=== PATIENT | male | born 1945 | race Caucasian/White ===

== ENCOUNTER → 2023-10-07 06:41 | Outpatient (REF) | payer MEDICARE, OTHER, SELFPAY | LOC: MRI 06:41 | PROVIDERS: ATTENDING PHYSICIAN Physical Medicine & Rehabilitation; FAMILY PHYSICIAN Internal Medicine | DX: M54.6 Pain in thoracic spine (principal); M54.16 Radiculopathy, lumbar region | CPT/HCPCS: 72146; 72148 ==

== ENCOUNTER 2023-11-26 18:06 | Emergency (ER) | payer MEDICARE, OTHER, SELFPAY ==
[2023-11-26 18:16] VITALS: BP 121/66
--- NOTE | 2023-11-26 18:59 | ED.GENMED ---
History of Present Illness
General
Chief Complaint: Facial Problem
Source: patient
Time Seen by Provider: 11/26/23 18:49
History of Present Illness
History of Present Illness:
77yoM with a history of coronary artery disease on a baby aspirin presenting with his neighbors for evaluation of facial lacerations. Patient was trimming a tree about 2 hours ago. He tripped over a root and fell face first onto the ground. He
believes he struck a tree branch or his chain saw on the way down. He has presenting with multiple facial lacerations. He denies any loss of consciousness. He denies any headache, visual changes, neck pain, dizziness, vomiting. Unknown last Tdap.
Past History
Past History
ED Past Medical History: Other (Chronic back pain from herniated disc and he is in pain management)
ED Past Surgical History: Cardiac (stent 02/2011 Dr. Oliveira.)
Social History
Tobacco: Non-smoker
Alcohol: Occasional
Personal:
Employment: Employed ([employer])
Family History
Family History: Negative Diabetes, Hypertension or CAD
Phy Exam
General Physical Exam
General Presentation: well appearing and no apparent distress
General age: appears stated age
General Skin: warm and dry
General Habitus: normal
General Mental: alert
ENT Exam
ENT Exam: other (Multiple lacerations noted to face. There is a gaping laceration to the forehead with central avulsed area. Minimal venous oozing noted. There is also a 1.5cm laceration noted under R eye with active bleeding. )
Eye Exam
Eye Exam: PERRL and EOMI
Neurological Exam
Neurological Exam: alert, no motor deficits and other (Ambulating independently)
[place] Coma Scale
Eye Opening: Spontaneous
Verbal Response: Oriented
Motor Response: Obeys Commands
GCS Total Score: 15
Skin Exam
Skin Exam: normal color and warm/dry
Psychiatric Exam
Psychiatric Exam: normal mood/affect
Course
Orders/Labs/Results
Orders:
Orders
11/26/23 18:59
Lidocaine/Epinephrine/Tetracai [Let Topical Anesthetic Gel] 3 ml TOPICAL NOW STA
11/26/23 19:01
Tetanus/Diphth/Acelpertussis [Adacel] 0.5 ml IM .ONCE ONE
Vital Signs
Initial and Last Documented VS:
Initial Vital Signs
Temp Pulse Resp BP Pulse Ox
97.8 F 67 19 121/66 100
11/26/23 18:16 11/26/23 18:16 11/26/23 18:16 11/26/23 18:16 11/26/23 18:16
Last Documented Vital Signs
Temp Pulse Resp BP Pulse Ox
97.8 F 70 18 134/80 100
11/26/23 18:16 11/26/23 20:52 11/26/23 20:52 11/26/23 20:52 11/26/23 18:16
Procedures
Laceration Closure
Middle Forehead:
Status of Wound: clean
Size of Wound in cm: 3
Description of Wound Edges: ragged
Preparation: cleaned with saline
Anesthesia: 1% Lidocaine with epi and Topical-LET
Revision/Debridement: routine- no revision
Wound exploration: explored to base- no FB
Type of Closure: single layer closure
Skin Closure Material: 5-0 nylon and 5-0 chromic gut
Number of sutures: 5
Additional information:
3 simple interrupted nylon sutures placed to inferior laceration. Superior aspect of the laceration with an area of avulsed skin that is unable to be approximated. Two chromic gut sutures placed to close dermal layer.
Right Cheek:
Status of Wound: clean
Size of Wound in cm: 1.5
Description of Wound Edges: sharp
Preparation: cleaned with saline
Anesthesia: 1% Lidocaine with epi and Topical-LET
Revision/Debridement: minor revision
Wound exploration: explored to base- no FB
Type of Closure: single layer closure
Skin Closure Material: 6-0 nylon
Number of sutures: 3
MDM/Problems Addressed
Differential Diagnosis Includes:
77yoM here with multiple facial lacerations after falling on a tree branch/chain saw. No LOC. On a baby aspirin daily. No headaches, dizziness, vomiting. VSS. He is awake, alert, with a GCS of 15. There are multiple lacerations on exam with a gaping
laceration to the forehead as well as a laceration inferior to the R eye that require repair.
Offered imaging which patient declines as he has no headache. Wounds were irrigated and repaired as above. The forehead laceration had a superior area of avulsion that was unable to be completely closed. Tdap updated. Home wound care discussed.
Patient advised to have sutures removed in 5 days. ED return precautions discussed. He expressed understanding and is agreeable to plan. He was discharged in stable condition.
*Critical Care Note
Total Time (30-74mins, 75-104mins- exclusive of procedures): Not Applicable
ED Attending Note
-
Portions of this chart may have been created with voice recognition software.� Occasional wrong word or��sound alike� substitutions may have occurred due to the inherent limitations of voice recognition software.
Discharge Plan
Departure
Patient Disposition: Home (Routine Discharge)
Date of Disposition: 11/26/23
Time of Disposition: 20:38
Patient with high blood pressure during this ER visit?: No
Discharge Problem:
Laceration of face, multiple sites
Instructions: Laceration Repair With Stitches (DC)
Prescriptions:
No Action
quetiapine 25 MG tablet
50 mg PO QPM
atorvastatin 10 MG tablet
20 mg PO QPM
metoprolol tartrate 25 MG tablet
25 mg PO QPM Qty: 1 0RF
Rx Instructions:
Hold if systolic blood pressure <130
tamsulosin 0.4 MG capsule
0.8 mg PO HS Qty: 60 0RF
aspirin 81 MG tablet,chewable
81 mg PO DAILY Qty: 30 0RF
Referrals:
Ray Khan, [Family Provider] -
Activity Restrictions/Additional Instructions:
Keep wound clean and dry. Do not get wet for the first 24 hours. Apply bacitracin twice a day for the first 3 days.
Please follow-up with your family doctor or return to the ED for suture removal in 5 days. Return to the ER sooner with any signs of infection, severe headache, confusion.
Interventions
Interventions:
*Risk Screen - Suicide Last Done: 11/26/23 18:18
*General Assessment Last Done: 11/26/23 18:19
*Neglect/Abuse Screening Last Done: 11/26/23 18:18
*Nursing Disposition Last Done: 11/26/23 20:52
ED- Neurological Assessment Last Done: 11/26/23 19:19
ED-Skin Assessment Last Done: 11/26/23 19:19
Discharge Date and Time
Discharge Date/Time: 11/26/23 20:52
Print Language: THAI
[2023-11-26] MEDS: LET TOPICAL ANESTHETIC GEL 3 ML TOPICAL (19:14)
[2023-11-26] MEDS: ADACEL 0.5 ML IM (20:31)
[2023-11-26 20:37] VITALS: BP 134/80
[2023-11-26 20:52] VITALS: BP 134/80
== END 2023-11-26 20:52 | disposition home or self-care (01) ==
LOC: EMR 18:06
PROVIDERS: EMERGENCY PHYSICIAN Emergency Medicine; FAMILY PHYSICIAN Internal Medicine
DX: S01.81XA Laceration without foreign body of other part of head, initial encounter (principal); W01.10XA Fall on same level from slipping, tripping and stumbling with subsequent striking against unspecified object, initial encounter; Z23 Encounter for immunization
CPT/HCPCS: 99284; 12052; 12011; 90471; 90715

== ENCOUNTER → 2024-05-16 08:57 | Outpatient (REF) | payer MEDICARE, OTHER, SELFPAY | LOC: RAD 08:57 | PROVIDERS: ATTENDING PHYSICIAN Physician Assistant; FAMILY PHYSICIAN Internal Medicine | DX: M25.551 Pain in right hip (principal) | CPT/HCPCS: 73502 ==

== ENCOUNTER → 2024-12-28 13:12 | Outpatient (REF) | payer MEDICARE, OTHER, SELFPAY | LOC: RAD 13:12 | PROVIDERS: ATTENDING PHYSICIAN Nurse Practitioner Family; FAMILY PHYSICIAN Internal Medicine | DX: L03.011 Cellulitis of right finger (principal); L03.90 Cellulitis, unspecified; M79.5 Residual foreign body in soft tissue | CPT/HCPCS: 73130 ==

== ENCOUNTER → 2025-01-01 12:49 | Outpatient (REF) | payer MEDICARE, OTHER, SELFPAY | LOC: RCS 12:49 | PROVIDERS: ATTENDING PHYSICIAN Internal Medicine; FAMILY PHYSICIAN Internal Medicine | DX: I25.10 Atherosclerotic heart disease of native coronary artery without angina pectoris (principal) | CPT/HCPCS: 93306 ==